=== PATIENT | male | born 1995 | race Caucasian/White ===

== ENCOUNTER 2019-04-16 09:13 | Day surgery (SDC) | payer MEDICAID, OTHER ==
[2019-04-16] VITALS (10 sets, daily range): BP systolic 112–151; BP diastolic 60–89
[~2019-04-16] VITALS: Ht 185.4 cm; Wt 147.7 kg
[2019-04-16 10:26] LABS: BASOPHILS # (AUTO) 0.1 X10'3 (0-0.2); BASOPHILS % (AUTO) 0.8 % (0-1); EOSINOPHILS # (AUTO) 0.1 X10'3 (0-0.9); EOSINOPHILS % (AUTO) 1.4 % (0-6); HEMATOCRIT 48.8 % (42.0-52.0); HEMOGLOBIN 16.8 g/dl (14.0-17.9); LYMPHOCYTES % (AUTO) 22.6 % (21-51); MEAN CORPUSCULAR HEMOGLOBIN 29.8 PG (27.0-31.0); MEAN CORPUSCULAR HGB CONC 34.4 g/dL (33.0-36.5); MEAN CORPUSCULAR VOLUME 86.5 FL (78-98); MONOCYTES # (AUTO) 0.9 X10'3 (0-0.9); MONOCYTES % (AUTO) 9.7 % (2-12); NEUTROPHILS # (AUTO) 5.9 X10'3 (1.8-7.7); NEUTROPHILS % (AUTO) 65.5 % (42-75); PLATELET COUNT 206 X10'3 (140-440); RED BLOOD COUNT 5.65 X10'6 (4.70-6.10); RED CELL DISTRIBUTION WIDTH 13.5 % (11.5-14.5)
[2019-04-16 10:40] LABS: ALANINE AMINOTRANSFERASE 56 U/L (12-78); ALBUMIN 3.9 G/DL (3.4-5.0); ALKALINE PHOSPHATASE 68 IU/L (46-116); ANION GAP 13 (8-16); ASPARTATE AMINO TRANSFERASE 18 U/L (10-37); BILIRUBIN,TOTAL 0.3 MG/DL (0.1-1.0); BLOOD UREA NITROGEN 15 MG/DL (7-18); BUN/CREATININE RATIO 14.7 (5.4-32.0); CALCIUM 9.1 MG/DL (8.5-10.1); CHLORIDE 105 MMOL/L (99-107); CREATININE 1.02 MG/DL (0.60-1.10); GLUCOSE 117 MG/DL (70-104); POTASSIUM 4.2 MMOL/L (3.5-5.1); SODIUM 141 MMOL/L (135-145); TOTAL CARBON DIOXIDE 22.6 MMOL/L (24-32); TOTAL PROTEIN 7.7 G/DL (6.4-8.2); eGFR 90 ML/MIN
[2019-04-16 11:15] LABS: CLARITY,URINE CLEAR (Clear); COLOR,URINE YELLOW (Yellow); GLUCOSE, URINE NEGATIVE (Neg); KETONES,URINE NEGATIVE (Neg); LEUKOCYTE ESTERASE ,URINE NEGATIVE (Neg); NITRITES, URINE NEGATIVE (Neg); OCCULT BLOOD,URINE NEGATIVE (Neg); PROTEIN,URINE NEGATIVE (Neg); UROBILINOGEN,URINE 0.2 E.U/dL (0.2-1.0)
[2019-04-16 11:16] LABS: UA COLLECTION TYPE CLN CATCH MIDSTREAM
--- NOTE | 2019-04-16 11:20 | NUR ---
pt iv started ,nurse and nursing teacher at bedside to do MRSA swab.
[2019-04-16] MEDS ORDERED: NO HOME MEDS (11:50)
--- NOTE | 2019-04-16 12:20 | NUR ---
pt resting in bed ,asked the pt if he has any pain,pt denies any severe pain 5/10 .significant ther at bedside MRSA swab collected.
[2019-04-16] MEDS ORDERED: normal saline 1000ml 1,000 ML IV SCH (14:06)
[2019-04-16] MEDS ORDERED: ceFAZolin 2gm in dextrose, iso 100 ML IV ONE (14:10)
[2019-04-16] MEDS ORDERED: cefazolin/dext.iso 2gm/50ml 50 ML IV ONE (15:00)
[2019-04-16] MEDS ORDERED: ceFAZolin 1000mg inj ONE ×4 (15:10→16:07)
[2019-04-16] MEDS ORDERED: BUPIVAcaine/PF 2.5 mg/ml (0.25%) 30ml vial ONE (15:11)
[2019-04-16] MEDS ORDERED: midazolam 2 mg/2 ml injection ONE (15:23)
[2019-04-16] MEDS ORDERED: LIDOcaine 2% (20mg/ml) 5ml vial ONE (15:23)
[2019-04-16] MEDS ORDERED: fentaNYL/PF 50MCG/1 ML 2ML syringe ONE (15:23)
[2019-04-16] MEDS ORDERED: propofol inj 20 ML IV ONE (15:23)
[2019-04-16] MEDS ORDERED: rocuronium 10mg/ml inj IV ONE ×2 (15:24→15:25)
[2019-04-16] MEDS ORDERED: desflurane 240ml liquid inh. IH ONE (15:25)
[2019-04-16] MEDS ORDERED: ondansetron/PF 4mg/2ml inj ONE (15:25)
[2019-04-16] MEDS ORDERED: meperidine/PF 50mg/ml syringe ONE (16:07)
[2019-04-16] MEDS ORDERED: ketorolac trometh. 30mg/ml inj. ONE (16:10)
[2019-04-16] MEDS ORDERED: dexamethasone sod phosphate 4mg/ml inj. ONE (16:10)
[2019-04-16] MEDS ORDERED: ringers solution, lacted 1,000 ML IV SCH (16:18)
[2019-04-16] MEDS ORDERED: meperidine/PF 25mg/ml syringe IV PRN ×2 (16:20)
[2019-04-16] MEDS ORDERED: ondansetron/PF 4mg/2ml inj IV PRN (16:20)
[2019-04-16] MEDS ORDERED: proCHLORperazine 10 MG/2 ml inj IV PRN (16:20)
[2019-04-16] MEDS ORDERED: morphine 4 MG/ML inj SYRINge IV PRN (16:20)
--- NOTE | 2019-04-16 17:01 | NUR ---
Received from OR via [facility] , accompanied by Anesthesiologist WESLEY and report given by Anesthesiolgist. PATIENT WITH 20G PIV IN LEFT UE RUNNING LR AT 100. 3 ABDOMINAL LAP SITES ARE PRESENT.PATIENT COMPLAINS OF 10-10 PAIN. MEDICATED UPON ARRIVAL. MD AWARE OF PAIN. Addendum: 04/16/19 at 1713 by Khai Crump RN, RN Amended: Links added.
[2019-04-16] MEDS: meperidine/PF 25mg/ml syringe IV PRN ×2 (17:05→17:16)
[2019-04-16] MEDS: morphine 4 MG/ML inj SYRINge IV PRN ×2 (17:06→17:48)
[2019-04-16] MEDS ORDERED: acetaminophen 1,000mg/100ml IV 100 ML IV ONE (17:25)
--- NOTE | 2019-04-16 17:36 | NUR ---
102 BLOOD GLUCOSE IN RR Addendum: 04/16/19 at 1737 by Khai Crump RN RN Amended: Links added.
--- NOTE | 2019-04-16 18:28 | NUR ---
DISCUSSED PLAN FOR PATIENT. PATIENT STATES THAT HE DOES NOT WISH TO STAY OVER AT THE HOSPITAL. CALLED MD VALENTINO AND HE AGREES AND THAT IF HE CANNOT VOID PATIENT TO GO HOME WITH [facility] AND COME BACK TO HIS OFFICE SUNDAY FOR CATHETER REMOVAL. INSTRUCTED PATIENT OF GIVEN PLAN. PATIENT STATES THAT THE "FIRST THINIG I'M GOING TO DO IS PULL OUT MY CATHETER IN THE FRONT OF THE HOSPITAL." THOROUGHLY EDUCATED PATIENT OF POSSIBLE SEQUALE OF PERFORMING SUCH AN ACTION. PATIENT TO BE TRANSFERRED TO SURGICAL FLOOR WHERE HE WILL BE GIVEN TIME TO VOID AND IF UNABLE WILL GO HOME WITH A CATHETER. Addendum: 04/16/19 at 1840 by Khai Crump RN, RN Amended: Links added.
--- NOTE | 2019-04-16 18:45 | NUR ---
Report recieved from Chase [facility]CH[facility] in recovery. Patientient arrived shortly on the unit and is resting. His lap sites looks good. There is minimal blood on the ambilical cord amd patient complains of no pain. Patient is to be discharged by 2029 or 2099. Per doctor's order, if patient does not void, FC placement and ok to go home with it.
--- NOTE | 2019-04-16 18:50 | NUR ---
ALL CRITERIA FOR TRANSFER TO THE FLOOR HAS BEEN ACHIEVED. VSS. BED LOW, CALL LIGHT AND VS. SET IN PLACE. RN PRESENT TO ACCEPT CARE. PATIENT RESTING COMFORTABLY IN BED. BELONGINGS SENT WITH PATIENT. DRESSINGS CDI. REPORT GIVEN TO AAYUSH CHURCHILL. TRANSPORTED VIA [employer] 2 ORDERLIES TO BED 349. ONE BAG OF BELONGINGS SENT. PATIENT WITH CELL PHONE IN HAND. Addendum: 04/16/19 at 1855 by Khai Crump RN RN Amended: Links added.
--- NOTE | 2019-04-16 21:01 | NUR ---
Patient just left the hospital with his parents. He voided 400 ml urine and did not get a FC placed since he is able to void.
== END 2019-04-16 21:11 | disposition home or self-care (01) ==
LOC: ER 09:13 → OR 14:06 → PAS 15:11 → SUR 3N 19:05 → OR 21:11 → ER 21:11
PROVIDERS: ATTEND Surgery
PROC: 0WUF4JZ Supplement Abdominal Wall with Synthetic Substitute, Percutaneous Endoscopic Approach (ICD-10-PCS; 2019-04-16)
PROC: 0WQF4ZZ Repair Abdominal Wall, Percutaneous Endoscopic Approach (ICD-10-PCS; principal; 2019-04-16 15:25)
DX: K43.0 Incisional hernia with obstruction, without gangrene (principal); Z72.0 Tobacco use; R10.9 Unspecified abdominal pain; R11.0 Nausea; E66.9 Obesity, unspecified
CPT/HCPCS: 36415; 49653; 80053; 81003; 82948; 85025; 87081; 93005; 96365; 96375; 96376; 99285; C1713; C1758; C1781; J0131; J0690; J1100; J1885; J2001; J2175; J2250; J2270; J2405; J2704; J3010; J3490; J7030; J7120; A4215; A4618; A7000; G0378

== ENCOUNTER 2019-08-04 12:43 | Emergency (ER) | payer MEDICAID, OTHER ==
[~2019-08-04 12:43] MED LIST: NO HOME MEDS
[2019-08-04] MEDS ORDERED: ketorolac trometh inj. 60 MG/2 ML VIAL IM ONE (14:00)
[2019-08-04 15:04] VITALS: BP 131/83
== END 2019-08-04 15:05 | disposition home or self-care (01) ==
LOC: ER 12:44
DX: R07.89 Other chest pain (principal); R05 Cough; F17.200 Nicotine dependence, unspecified, uncomplicated
CPT/HCPCS: 71045; 93005; 96372; 99283; J1885

== ENCOUNTER 2024-02-05 16:19 | Emergency (ER) | payer OTHER ==
[~2024-02-05] VITALS: Ht 185.4 cm; Wt 175.0 kg
[2024-02-05 16:25] VITALS: BP 165/83; PULSE 106; TEMP 98.3; O2SAT 96
[2024-02-05] MEDS ORDERED: ketorolac trometh. 30mg/ml inj. IM ONE (18:00)
[2024-02-05] MEDS: ketorolac tromethamine 15mg/ml inj. IM ONE (18:15)
[2024-02-05 18:26] VITALS: RESP 18
== END 2024-02-05 18:28 | disposition home or self-care (01) ==
LOC: ER 16:20
DX: M25.561 Pain in right knee (principal); M79.89 Other specified soft tissue disorders
CPT/HCPCS: 73564; 96372; 99284; J1885